=== PATIENT | male | born 1970 | race Caucasian/White ===

== ENCOUNTER 2017-02-27 13:00 | Observation (INO) | payer MEDICAID ==
[~2017-02-27] VITALS: Ht 188 cm; Wt 108.6 kg
[2017-02-27 13:57] LABS: HEMATOCRIT 43.9 % (39.2-51.8); HEMOGLOBIN 14.8 g/dL (13.7-18.0); WHITE BLOOD COUNT 9.7 x10^3/uL (3.4-10)
[2017-02-27] MEDS ORDERED: SODIUM CHLORIDE FLUSH 10ML SYR IVF ONE (14:00)
[2017-02-27] MEDS ORDERED: SODIUM CHLORIDE 0.9% 1,000ML IVBOLUS ONE (14:00)
[2017-02-27] MEDS ORDERED: ONDANSETRON 2MG/ML, 2ML IVPush ONE (14:00)
[2017-02-27] MEDS ORDERED: LORazepam 2 MG/ML, 1ML IVPush PRN (14:00)
[2017-02-27 14:09] LABS: BLOOD UREA NITROGEN 11 mg/dL (7-18)
[2017-02-27 14:12] LABS: ASPARTATE AMINO TRANSFERASE 41 U/L (15-37)
[2017-02-27 14:48] LABS: DAU SCREEN DISCLAIMER
[2017-02-27] MEDS ORDERED: ALUMINUM/MAG/SIMETHICONE 30 ML UDC PO PRN (19:00)
[2017-02-27] MEDS ORDERED: ONDANSETRON 2MG/ML, 2ML IV PRN (19:00)
[2017-02-27] MEDS ORDERED: ACETAMINOPHEN 325 MG TABLET PO PRN (19:00)
[2017-02-27] MEDS ORDERED: LORazepam 2 MG/ML, 1ML IVPush ONE (19:00)
[2017-02-27] MEDS ORDERED: DIPHENHYDRAMINE 50 MG CAPSULE PO PRN (19:00)
[2017-02-27] MEDS ORDERED: LORazepam 2 MG/ML, 1ML IM PRN (19:00)
[2017-02-27] MEDS ORDERED: LORazepam 2 MG/ML, 1ML ONE (20:01)
[2017-02-27] MEDS: BACLOFEN 10 MG TABLET PO SCH (21:00)
[2017-02-28 00:48] VITALS: BP 159/90
[2017-02-28 02:00] VITALS: BP 159/90
[2017-02-28] MEDS: MAGNESIUM SULFATE IV SCH ×3 (02:10→18:00)
[2017-02-28] MEDS: [UNRECOGNIZED DRUG - OTHER] IV SCH ×3 (02:10→18:00)
[2017-02-28] MEDS: FOLIC ACID IV SCH ×3 (02:10→18:00)
[2017-02-28] MEDS: MVI ADULT IV SCH ×3 (02:10→18:00)
[2017-02-28 05:02] LABS: HEMATOCRIT 42.3 % (39.2-51.8); HEMOGLOBIN 14.1 g/dL (13.7-18.0); WHITE BLOOD COUNT 6.2 x10^3/uL (3.4-10)
[2017-02-28 05:17] LABS: BLOOD UREA NITROGEN 11 mg/dL (7-18)
[2017-02-28 05:20] LABS: ASPARTATE AMINO TRANSFERASE 33 U/L (15-37)
[2017-02-28] MEDS: ENOXAPARIN 40 MG/0.4 ML SQ SCH ×2 (06:27→21:20)
[2017-02-28] MEDS: BACLOFEN 10 MG TABLET PO SCH ×2 (08:57→21:21)
[2017-02-28 09:00] VITALS: BP 145/98
[2017-02-28] MEDS ORDERED: LORazepam 1MG TABLET PO PRN ×3 (10:00)
[2017-02-28] MEDS ORDERED: LORazepam 2 MG/ML, 1ML IV PRN ×5 (10:00)
[2017-02-28] MEDS: LORazepam 1MG TABLET PO PRN (12:19)
[2017-02-28 14:29] VITALS: BP 148/97
[2017-02-28 18:30] VITALS: BP 141/85
[2017-02-28] MEDS: LURASIDONE 20 MG TABLET PO SCH (21:20)
[2017-02-28] MEDS: DIVALPROEX 500 MG TAB.ER.24H PO SCH (21:20)
[2017-02-28] MEDS ORDERED: LORazepam 1MG TABLET ONE (21:26)
[2017-02-28] MEDS: LORazepam 0.5MG TABLET PO PRN (21:31)
[2017-03-01 01:35] VITALS: BP 146/92
[2017-03-01] MEDS: MAGNESIUM SULFATE IV SCH (02:12)
[2017-03-01] MEDS: FOLIC ACID IV SCH (02:12)
[2017-03-01] MEDS: [UNRECOGNIZED DRUG - OTHER] IV SCH (02:12)
[2017-03-01] MEDS: MVI ADULT IV SCH (02:12)
[2017-03-01 07:59] VITALS: BP 149/100
[2017-03-01] MEDS: LORazepam 1MG TABLET PO PRN (08:14)
[2017-03-01] MEDS: KETOROLAC 30 MG/1 ML IVPush PRN ×2 (08:14→22:04)
[2017-03-01] MEDS: LURASIDONE 20 MG TABLET PO SCH (08:15)
[2017-03-01] MEDS: BACLOFEN 10 MG TABLET PO SCH ×2 (08:15→20:18)
[2017-03-01] MEDS: ALLOPURINOL 300 MG TABLET PO SCH (08:15)
[2017-03-01] MEDS ORDERED: POLYETHYLENE GLYCOL 17 GM PACKET PO PRN (09:30)
[2017-03-01 13:12] VITALS: BP 141/85
[2017-03-01] MEDS ORDERED: POTASSIUM PHOSPHATE 22 MEQ in SODIUM CHLORIDE 0.9% 500 ML IV ONE (15:30)
[2017-03-01 20:03] VITALS: BP 152/110
[2017-03-01] MEDS: ENOXAPARIN 40 MG/0.4 ML SQ SCH ×2 (20:18→20:22)
[2017-03-01] MEDS: DIVALPROEX 500 MG TAB.ER.24H PO SCH (20:19)
[2017-03-01 20:26] VITALS: BP 163/101
[2017-03-01] MEDS: LORazepam 0.5MG TABLET PO PRN (21:11)
[2017-03-01 22:07] VITALS: BP 162/91
[2017-03-02 00:47] VITALS: BP 141/88
[2017-03-02] MEDS: MAGNESIUM SULFATE IV SCH (02:20)
[2017-03-02] MEDS: [UNRECOGNIZED DRUG - OTHER] IV SCH (02:20)
[2017-03-02] MEDS: FOLIC ACID IV SCH (02:20)
[2017-03-02] MEDS: MVI ADULT IV SCH (02:20)
[2017-03-02 05:51] LABS: ASPARTATE AMINO TRANSFERASE 20 U/L (15-37); BLOOD UREA NITROGEN 13 mg/dL (7-18)
[2017-03-02 07:40] VITALS: BP 155/88
[2017-03-02] MEDS: BACLOFEN 10 MG TABLET PO SCH ×2 (08:44→21:00)
[2017-03-02] MEDS: ALLOPURINOL 300 MG TABLET PO SCH (08:44)
[2017-03-02] MEDS: LURASIDONE 20 MG TABLET PO SCH (08:44)
[2017-03-02] MEDS ORDERED: SENNA/DOCUSATE TABLET PO SCH (09:00)
[2017-03-02] MEDS: KETOROLAC 30 MG/1 ML IVPush PRN (12:03)
[2017-03-02] MEDS ORDERED: IBUPROFEN 200 MG TABLET PO PRN (16:30)
[2017-03-02 17:55] VITALS: BP 143/87
[2017-03-02 19:26] VITALS: BP 181/107
[2017-03-02] MEDS: LORazepam 1MG TABLET PO PRN (19:39)
[2017-03-02] MEDS: ENOXAPARIN 40 MG/0.4 ML SQ SCH (19:43)
[2017-03-02 20:17] VITALS: BP 138/102
[2017-03-02] MEDS: DIVALPROEX 500 MG TAB.ER.24H PO SCH (20:59)
== END 2017-03-02 22:22 ==
LOC: EDBD 13:00 → ED 14:43 → EDIP 17:44 → 4WST 23:48 → 3E 03-02 14:43
PROVIDERS: ADMIT Internal Medicine; ATTEND Internal Medicine
DX: R45.851 Suicidal ideations (principal); F10.239 Alcohol dependence with withdrawal, unspecified; F12.20 Cannabis dependence, uncomplicated; I10 Essential (primary) hypertension; R00.0 Tachycardia, unspecified; E87.1 Hypo-osmolality and hyponatremia; R17 Unspecified jaundice; F31.9 Bipolar disorder, unspecified; F22 Delusional disorders; F90.9 Attention-deficit hyperactivity disorder, unspecified type; G89.29 Other chronic pain; K59.00 Constipation, unspecified; M10.9 Gout, unspecified; Z80.0 Family history of malignant neoplasm of digestive organs; Z81.1 Family history of alcohol abuse and dependence; Z81.8 Family history of other mental and behavioral disorders; Z91.5 Personal history of self-harm
CPT/HCPCS: 36415; 80053; 80307; 82607; 82746; 83605; 83735; 84100; 85025; 93005; 96361; 96365; 96366; 96372; 96375; 96376; 99285; G0378; J1650; J1885; J2060; J3475; J7030; J7040

== ENCOUNTER 2017-06-18 20:14 | Inpatient (IN) | payer MEDICAID ==
[~2017-06-18] VITALS: Ht 188 cm; Wt 116.2 kg
[2017-06-18] MEDS ORDERED: SODIUM CHLORIDE 0.9% 1,000 ML IV ONE (20:45)
[2017-06-18] MEDS ORDERED: LORazepam 2 MG/ML, 1ML ONE ×2 (20:48→22:45)
[2017-06-18] MEDS ORDERED: LORazepam 2 MG/ML, 1ML IVPush ONE ×2 (21:00→23:00)
[2017-06-18] MEDS ORDERED: SODIUM CHLORIDE FLUSH 10ML SYR IVF ONE (21:00)
[2017-06-18] MEDS ORDERED: SODIUM CHLORIDE 0.9% 1,000ML IVBOLUS ONE (21:00)
[2017-06-18] MEDS ORDERED: THIAMINE 100MG TABLET PO ONE (21:00)
[2017-06-18] MEDS ORDERED: ONDANSETRON 2MG/ML, 2ML IVPush ONE (21:00)
[2017-06-18 21:32] LABS: HEMATOCRIT 49.3 % (39.2-51.8); HEMOGLOBIN 16.9 g/dL (13.7-18.0); WHITE BLOOD COUNT 9.2 x10^3/uL (3.4-10)
[2017-06-18 21:40] LABS: ASPARTATE AMINO TRANSFERASE 86 U/L (15-37); BLOOD UREA NITROGEN 14 mg/dL (7-18)
[2017-06-18] MEDS ORDERED: POTASSIUM CHLORIDE 20 MEQ TAB.ER.PRT PO ONE (22:30)
[2017-06-18] MEDS ORDERED: PROMETHAZINE 25 MG/ML, 1ML IM STA (22:40)
[2017-06-18] MEDS ORDERED: PROMETHAZINE 25 MG/ML, 1ML ONE (22:45)
[2017-06-18] MEDS ORDERED: POTASSIUM CHLORIDE 20 MEQ TAB.ER.PRT ONE (22:45)
[2017-06-19] MEDS ORDERED: POTASSIUM CHLORIDE 40 MEQ in SODIUM CHLORIDE 0.9% 500 ML IV ONE
[2017-06-19] MEDS ORDERED: NS + 20MEQ KCL 1,000 ML IV SCH (00:08)
[2017-06-19] MEDS ORDERED: LORazepam 2 MG/ML, 1ML ONE (00:26)
[2017-06-19] MEDS ORDERED: BISACODYL 10 MG SUPP PR PRN (00:30)
[2017-06-19] MEDS ORDERED: POLYETHYLENE GLYCOL 17 GM PACKET PO PRN (00:30)
[2017-06-19] MEDS ORDERED: ONDANSETRON 2MG/ML, 2ML IVPush PRN (00:30)
[2017-06-19] MEDS ORDERED: PROMETHAZINE 25 MG/ML, 1ML IM PRN (00:30)
[2017-06-19] MEDS ORDERED: LORazepam 2 MG/ML, 1ML IVPush PRN (00:30)
[2017-06-19] MEDS ORDERED: POTASSIUM CHLORIDE 20 MEQ, MAGNESIUM SULFATE 1 GM, THIAMINE 100 MG, MVI ADULT 10 ML in ... IV SCH (00:30)
[2017-06-19 02:00] VITALS: BP 170/89
[2017-06-19 02:09] VITALS: BP 170/89
[2017-06-19] MEDS ORDERED: HALOPERIDOL 5 MG/ML IV ONE (03:00)
[2017-06-19] MEDS ORDERED: HALOPERIDOL 5 MG/ML IM ONE (03:00)
[2017-06-19] MEDS ORDERED: LORazepam 2 MG/ML, 1ML IVPush ONE (03:00)
[2017-06-19] MEDS: HEPARIN 5,000 UNITS/ML, 1ML SQ SCH ×2 (03:06→11:04)
[2017-06-19 04:40] LABS: HEMATOCRIT 44.5 % (39.2-51.8); HEMOGLOBIN 15.4 g/dL (13.7-18.0); WHITE BLOOD COUNT 8.8 x10^3/uL (3.4-10)
[2017-06-19 05:00] LABS: BLOOD UREA NITROGEN 12 mg/dL (7-18)
[2017-06-19 05:04] LABS: ASPARTATE AMINO TRANSFERASE 82 U/L (15-37)
[2017-06-19 06:50] VITALS: BP 155/90
[2017-06-19] MEDS ORDERED: SENNA/DOCUSATE TABLET PO SCH (09:00)
[2017-06-19] MEDS ORDERED: SODIUM PHOSPHATE 20 MMOL in SODIUM CHLORIDE 0.9% 500 ML IV ONE (13:30)
[2017-06-19 14:10] VITALS: BP 155/97
== END 2017-06-19 16:15 | disposition left against medical advice (07) | DRG 894 ==
LOC: ED 23:59 → MERGE 06-19 00:08 → EDIP 06-19 00:08 → 4NOR 06-19 01:45
PROVIDERS: ADMIT Hospitalist; ATTEND Hospitalist
DX: F10.239 Alcohol dependence with withdrawal, unspecified (principal); E44.1 Mild protein-calorie malnutrition; E87.5 Hyperkalemia; D75.89 Other specified diseases of blood and blood-forming organs; F12.90 Cannabis use, unspecified, uncomplicated; F17.210 Nicotine dependence, cigarettes, uncomplicated; I10 Essential (primary) hypertension; E80.6 Other disorders of bilirubin metabolism; R00.0 Tachycardia, unspecified; R74.0 Nonspecific elevation of levels of transaminase and lactic acid dehydrogenase [LDH]; Z68.32 Body mass index [BMI] 32.0-32.9, adult
CPT/HCPCS: 36415; 80053; 80307; 83690; 83735; 84100; 85025; 85610; 93005; 96361; 96365; 96375; 96376; J1644; J2405; J2550; J3411; J3475; J3480; G0479; J1630; J2060; J7030; J7040

== ENCOUNTER 2018-04-09 22:14 | Emergency (ER) | payer MEDICAID ==
[~2018-04-09] VITALS: Ht 188 cm; Wt 126.4 kg
[2018-04-09 22:17] VITALS: BP 151/94
[2018-04-09 23:25] LABS: BASOPHILS # (AUTO) 0.05 x10^3/uL (0-0.1); BASOPHILS % (AUTO) 1 % (0-1); EOSINOPHILS # (AUTO) 0.16 x10^3/uL (0-0.4); EOSINOPHILS % (AUTO) 2 % (1-7); LYMPHOCYTES # (AUTO) 2.79 x10^3/uL (1-3.4); LYMPHOCYTES % (AUTO) 35 % (22-44); MD NO; MEAN CORPUSCULAR HGB CONC 34.9 g/dL (33.2-36.2); MEAN CORPUSCULAR VOLUME 91.6 fL (81-97); MONOCYTES # (AUTO) 0.67 x10^3/uL (0.2-0.8); MONOCYTES % (AUTO) 8 % (2-9); NEUTROPHILS # (AUTO) 4.32 x10^3/uL (1.8-6.8); NEUTROPHILS % (AUTO) 54 % (42-75); PLATELET COUNT 218 x10^3/uL (130-400); RED BLOOD COUNT 4.43 x10^6/uL (4.38-5.82); RED CELL DISTRIBUTION WIDTH 12.6 % (9.4-14.8)
[2018-04-09 23:37] LABS: ALANINE AMINOTRANSFERASE 21 U/L (12-78); ALBUMIN 3.3 g/dL (3.4-5.0); ANION GAP 7 mmol/L (5-15); CALCIUM 8.6 mg/dL (8.5-10.1); CHLORIDE 112 mmol/L (98-107); CREATININE 1.03 mg/dL (0.7-1.3); SALICYLATE LEVEL 2.6 mg/dL (2.8-20.0)
[2018-04-09 23:38] LABS: AMPHETAMINE SCREEN, URINE Negative (Negative); BARBITURATE SCREEN, URINE Negative (Negative); BENZODIAZEPINE SCREEN, URINE Negative (Negative); CANNABINOID SCREEN, URINE Negative (Negative); COCAINE SCREEN, URINE Negative (Negative); METHADONE SCREEN, URINE Negative (Negative); OPIATE SCREEN, URINE Negative (Negative)
[2018-04-09 23:39] LABS: ALKALINE PHOSPHATASE 78 U/L (45-117); BILIRUBIN,TOTAL 0.3 mg/dL (0.2-1.0); TOTAL PROTEIN 6.8 g/dL (6.4-8.2)
[2018-04-09 23:42] LABS: ACETAMINOPHEN < 2 mcg/mL (10-30)
== END 2018-04-10 02:38 | disposition home or self-care (01) ==
LOC: ED 23:27
DX: F32.0 Major depressive disorder, single episode, mild (principal); F17.210 Nicotine dependence, cigarettes, uncomplicated; M10.9 Gout, unspecified; Z91.011 Allergy to milk products; Z79.899 Other long term (current) drug therapy
CPT/HCPCS: 36415; 80053; 80307; 80329; 85025; 99284; G0480

== ENCOUNTER 2019-12-10 13:57 | Emergency (ER) | payer MEDICAID ==
[~2019-12-10] VITALS: Ht 185.4 cm; Wt 115.9 kg
[2019-12-10 14:00] VITALS: BP 135/93
--- NOTE | 2019-12-10 14:55 | NUR ---
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
--- NOTE | 2019-12-10 16:29 | NUR ---
CARE FOR DC ONLY PROVIDED. PT SITTING UP ON CHAIR, DRESSED. NO IV TO DC. REVIEWED DC INSTRUCTIONS WITH PT. UNDERSTANDING VERBALIZED. PT LEFT AMB, GAIT STEADY.
== END 2019-12-10 16:31 | disposition home or self-care (01) ==
LOC: ED 16:11
DX: S90.32XA Contusion of left foot, initial encounter (principal); S06.9X1A Unspecified intracranial injury with loss of consciousness of 30 minutes or less, initial encounter; M10.9 Gout, unspecified; Y04.8XXA Assault by other bodily force, initial encounter; Y93.89 Activity, other specified; Y92.488 Other paved roadways as the place of occurrence of the external cause; Y99.8 Other external cause status
CPT/HCPCS: 70450; 99284

== ENCOUNTER 2020-04-19 15:14 | Emergency (ER) | payer MEDICAID ==
[~2020-04-19] VITALS: Ht 188 cm; Wt 110.0 kg
[2020-04-19 15:24] VITALS: BP 147/102
[2020-04-19] MEDS ORDERED: THIAMINE 100MG TABLET PO ONE (15:30)
--- NOTE | 2020-04-19 15:37 | NUR ---
TASK RN NOTE: PT MAURA , REPORT TAKEN FROM EMS. "MY CALLED THE AMBULANCE, I DON'T KNOW WHY, SHE DOES THAT ABOUT TWICE A MONTH." PT ADMITS TO 2 SHOTS OF VODKA WITHIN THE LAST 2 HRS. PT STATES HE HAD A SEIZURE YESTERDAY, GENERALIZED PAIN SINCE THAT TIME. PT STATES THIS WAS AN ETOH WITHDRAWAL SEIZURE. PT APPEARS INTOXICATED. ALL MONITORS IN PLACE. CALL LIGHT IN REACH. PT TO HAVE LABS AND THIAMINE. REPORT GIVEN TO WILLARD BROWNING WHO IS ASSUMING CARE.
[2020-04-19 15:44] LABS: BASOPHILS # (AUTO) 0.03 x10^3/uL (0-0.1); BASOPHILS % (AUTO) 1 % (0-1); EOSINOPHILS # (AUTO) 0.06 x10^3/uL (0-0.4); EOSINOPHILS % (AUTO) 1 % (1-7); LYMPHOCYTES # (AUTO) 2.07 x10^3/uL (1-3.4); LYMPHOCYTES % (AUTO) 34 % (22-44); MD NO; MEAN CORPUSCULAR HEMOGLOBIN 33.8 pg (27.5-34.5); MEAN CORPUSCULAR HGB CONC 32.9 g/dL (33.2-36.2); MEAN PLATELET VOLUME 7.8 fL (7.4-10.4); MONOCYTES # (AUTO) 0.75 x10^3/uL (0.2-0.8); MONOCYTES % (AUTO) 12 % (2-9); NEUTROPHILS # (AUTO) 3.21 x10^3/uL (1.8-6.8); NEUTROPHILS % (AUTO) 53 % (42-75); PLATELET COUNT 202 x10^3/uL (130-400); RED BLOOD COUNT 4.16 x10^6/uL (4.38-5.82); RED CELL DISTRIBUTION WIDTH 16.4 % (9.4-14.8)
--- NOTE | 2020-04-19 15:49 | NUR ---
PT NOT IN ROOM. THIS RN WALKED AOUND UNIT, UNABLE TO FIND PT. WILL SEE IF PT RETURNS TO ROOM, WAS NO IN BATHROOM BY ROOM.
[2020-04-19 15:57] LABS: ALANINE AMINOTRANSFERASE 64 U/L (12-78); ALBUMIN 3.2 g/dL (3.4-5.0); ANION GAP 12 mmol/L (5-15); CALCIUM 8.8 mg/dL (8.5-10.1); CHLORIDE 103 mmol/L (98-107); CREATININE 1.11 mg/dL (0.7-1.3)
[2020-04-19 16:01] LABS: ALKALINE PHOSPHATASE 200 U/L (45-117); BILIRUBIN,TOTAL 0.8 mg/dL (0.2-1.0)
--- NOTE | 2020-04-19 16:15 | NUR ---
per reena who is watching pt by this pt's room, pt walked by her steadily out of room. pt did not say where he was going. erp aware pt has gone
== END 2020-04-19 16:11 | disposition left against medical advice (07) ==
LOC: ED 16:05
DX: F10.229 Alcohol dependence with intoxication, unspecified (principal); Y90.0 Blood alcohol level of less than 20 mg/100 ml
CPT/HCPCS: 36415; 80053; 80307; 85025; 99283

== ENCOUNTER 2020-04-27 21:33 | Inpatient (IN) | payer MEDICAID ==
[~2020-04-27] VITALS: Ht 188 cm; Wt 113.8 kg
--- NOTE | 2020-04-27 21:44 | NUR ---
BIBA, pt states he is trying to cut back on alcohol intake and has been experiencing N/V and tremors. Pt states he had a seizure 2 days ago and had an episode today where he "was sitting in bed putting on his shoes and fell into bed and woke up with one shoe on." Pt reports he previously was drinking a fifth a day and has cut back to "a couple shots", pt states last drink was this am. Receieved 5mg Versed and 4 mg zofran en route
[2020-04-27] MEDS ORDERED: LORazepam 2 MG/ML, 1ML ONE ×2 (22:27→23:53)
[2020-04-27] MEDS ORDERED: ONDANSETRON 2MG/ML, 2ML ONE (22:27)
[2020-04-27] MEDS ORDERED: LORazepam 2 MG/ML, 1ML IVPush ONE (22:30)
[2020-04-27] MEDS ORDERED: SODIUM CHLORIDE FLUSH 10ML SYR IVF ONE (22:30)
[2020-04-27] MEDS ORDERED: ONDANSETRON 2MG/ML, 2ML IVPush ONE (22:30)
[2020-04-27] MEDS ORDERED: MAGNESIUM SULFATE 1 GM, THIAMINE 100 MG, FOLIC ACID 1 MG, MVI ADULT 10 ML in SODIUM CHL... IV ONE (22:30)
--- NOTE | 2020-04-27 22:35 | NUR ---
banana bag requested from pharmacy
--- NOTE | 2020-04-27 22:45 | NUR ---
called pt per pt request at [phone] and provided update
[2020-04-27 22:49] LABS: MEAN CORPUSCULAR HEMOGLOBIN 33.7 pg (27.5-34.5); MEAN CORPUSCULAR HGB CONC 32.6 g/dL (33.2-36.2); MEAN PLATELET VOLUME 9.2 fL (7.4-10.4); PLATELET COUNT 109 x10^3/uL (130-400); RED BLOOD COUNT 3.76 x10^6/uL (4.38-5.82); RED CELL DISTRIBUTION WIDTH 15.7 % (9.4-14.8)
[2020-04-27 22:58] LABS: ALANINE AMINOTRANSFERASE 48 U/L (12-78); ALBUMIN 3.1 g/dL (3.4-5.0); ANION GAP 12 mmol/L (5-15); CALCIUM 8.7 mg/dL (8.5-10.1); CHLORIDE 101 mmol/L (98-107); CREATININE 0.98 mg/dL (0.7-1.3)
[2020-04-27 22:59] LABS: MD YES
[2020-04-27 23:00] LABS: ALKALINE PHOSPHATASE 171 U/L (45-117); BILIRUBIN,TOTAL 1.7 mg/dL (0.2-1.0); TOTAL PROTEIN 7.6 g/dL (6.4-8.2)
[2020-04-27 23:45] LABS: ANISOCYTOSIS 1+; BAND#(MANUAL) 0.08 x10^3/uL; BANDS%(MANUAL) 1 % (0-7); BASOS#(MANUAL) 0.08 x10^3/uL (0-0.1); BASOS% (MANUAL) 1 % (0-1); LYMPH#(MANUAL) 0.66 x10^3/uL (1-3.4); LYMPHS% (MANUAL) 8 % (22-44); MONOS#(MANUAL) 1.08 x10^3/uL (0.3-2.7); MONOS% (MANUAL) 13 % (2-9); SEG#(MANUAL) 6.39 x10^3/uL (1.8-6.8); SEGS% (MANUAL) 77 % (42-75)
[2020-04-27 23:47] LABS: <PLATELET ESTIMATE> DECREASED; LARGE PLATELETS 1+
[2020-04-27] MEDS ORDERED: POTASSIUM CHLORIDE 20 MEQ TAB.ER.PRT ONE (23:52)
[2020-04-28] MEDS ORDERED: SODIUM CHLORIDE 0.9% 1,000ML IVBOLUS ONE
[2020-04-28] MEDS ORDERED: ONDANSETRON 2MG/ML, 2ML ONE (00:49)
[2020-04-28] MEDS ORDERED: ONDANSETRON 2MG/ML, 2ML IVPush ONE (01:00)
[2020-04-28] MEDS ORDERED: LORazepam 2 MG/ML, 1ML IVPush ONE ×3 (01:00→01:30)
[2020-04-28] MEDS ORDERED: LORazepam 2 MG/ML, 1ML ONE (01:04)
--- NOTE | 2020-04-28 02:26 | NUR ---
covering for break, pt awake, slightly tremulous but states feels better since ativan. eating and drinking, ivf banana bag infusing. vss.
--- NOTE | 2020-04-28 02:39 | NUR ---
hospitalist at bedside.
--- NOTE | 2020-04-28 02:52 | NUR ---
report called to Charu LAMAR to assume care upon transfer to [facility]
[2020-04-28] MEDS ORDERED: POTASSIUM CHLORIDE 20 MEQ TAB.ER.PRT PO ONE ×2 (03:00)
[2020-04-28] MEDS ORDERED: LORazepam 2 MG/ML, 1ML IV PRN ×4 (03:00)
[2020-04-28] MEDS ORDERED: FOLIC ACID 1 MG TABLET PO ONE (03:00)
[2020-04-28] MEDS ORDERED: ENALAPRILAT 1.25 MG/ML, 2ML IVPush PRN (03:00)
[2020-04-28] MEDS ORDERED: ONDANSETRON 2MG/ML, 2ML IVPush PRN (03:00)
[2020-04-28] MEDS ORDERED: GABAPENTIN 300 MG CAPSULE PO PRN (03:00)
[2020-04-28 03:36] VITALS: BP 127/80
[2020-04-28 04:32] LABS: FREE T4 (FREE THYROXINE) 1.03 ng/dL (0.76-1.46)
[2020-04-28] MEDS: DIAZEPAM 10 MG TABLET PO SCH ×2 (04:41→09:00)
[2020-04-28] MEDS: LORazepam 2 MG/ML, 1ML IV PRN ×2 (07:55→10:06)
[2020-04-28 08:44] VITALS: BP 150/93
[2020-04-28] MEDS ORDERED: MULTIVITAMINS/MINERALS TABLET PO SCH (09:00)
[2020-04-28] MEDS ORDERED: DIAZEPAM 5 MG TABLET ONE (09:42)
[2020-04-28] MEDS ORDERED: CYANOCOBALAMIN 1,000 MCG/ML, 1ML IM SCH (10:00)
[2020-04-28] MEDS ORDERED: MULTIVITS,STRESS FORMULA 1 TABLET PO SCH (10:00)
[2020-04-28] MEDS ORDERED: ZINC SULFATE 220 MG CAPSULE PO SCH (10:00)
[2020-04-28] MEDS ORDERED: MAGNESIUM SULFATE PMX 2GM/50ML 50 ML IV ONE (10:00)
[2020-04-28] MEDS ORDERED: GABAPENTIN 300 MG CAPSULE PO SCH (10:00)
[2020-04-28] MEDS ORDERED: CHOLECALCIFEROL 5,000u TAB PO SCH (10:00)
[2020-04-28] MEDS ORDERED: ASCORBIC ACID 500 MG TABLET PO SCH (17:00)
[2020-04-29] MEDS ORDERED: DIAZEPAM 5 MG TABLET PO SCH (03:00)
[2020-04-29] MEDS ORDERED: THIAMINE 100 MG in DEXTROSE 5% 50 ML IVPB SCH (09:00)
== END 2020-04-28 11:34 | disposition left against medical advice (07) | DRG 894 ==
LOC: ED 22:04 → EDIP 04-28 01:35 → 5SO 04-28 03:03
PROVIDERS: ADMIT Family Medicine; ATTEND Family Medicine
DX: F10.221 Alcohol dependence with intoxication delirium (principal); R00.0 Tachycardia, unspecified; F10.239 Alcohol dependence with withdrawal, unspecified; F19.10 Other psychoactive substance abuse, uncomplicated; F41.9 Anxiety disorder, unspecified; E87.6 Hypokalemia; M10.9 Gout, unspecified; M19.90 Unspecified osteoarthritis, unspecified site; D69.6 Thrombocytopenia, unspecified; D53.9 Nutritional anemia, unspecified; Z82.3 Family history of stroke; Z82.49 Family history of ischemic heart disease and other diseases of the circulatory system
CPT/HCPCS: 36415; 70450; 76700; 80053; 80074; 80307; 82607; 83735; 84439; 84443; 84481; 85025; 93005; G0378; J2405; J3411; J3475; J2060; J3420; J7030

== ENCOUNTER 2020-04-28 12:09 | Emergency (ER) | payer MEDICAID ==
[~2020-04-28] VITALS: Ht 188 cm; Wt 109.1 kg
--- NOTE | 2020-04-28 12:25 | NUR ---
LEFT AMA FROM CARD TELE THIS AM. LAST DRINK UNKNOWN. PT AOX3. THINKS THE PRESIDENT IS LALA VARGAS. PT WITHDRAWING FROM ETOH. LEFT AMA AFTER HAVING A SZ. PT DIAPHORETIC IN ROOM AND SHAKING. PT NOW STATES "I JUST WANT YOU TO MAKE ME FEEL BETTER SO I CAN GO HOME". PT EDUCATED ON ED PROCESS. PT VERBALIZES UNDERSTANDING. PT HAS DT'S. PIV INITIATED. EKG COMPLETED. MONITORS APPLIED. SZ PADS IN PLACE.
[2020-04-28] MEDS ORDERED: MAGNESIUM SULFATE PMX 2GM/50ML 50 ML ONE (12:53)
[2020-04-28] MEDS ORDERED: LORazepam 2 MG/ML, 1ML ONE (12:53)
[2020-04-28] MEDS ORDERED: SODIUM CHLORIDE 0.9% 1,000 ML IV ONE (13:00)
[2020-04-28] MEDS ORDERED: THIAMINE 100 MG in SODIUM CHLORIDE 0.9% 50 ML IVPB ONE (13:00)
[2020-04-28] MEDS ORDERED: SODIUM CHLORIDE FLUSH 10ML SYR IVF ONE (13:00)
[2020-04-28] MEDS ORDERED: LORazepam 2 MG/ML, 1ML IV ONE (13:00)
[2020-04-28] MEDS ORDERED: MAGNESIUM SULFATE PMX 2GM/50ML 50 ML IV ONE (13:00)
[2020-04-28 13:13] LABS: BASOPHILS % (AUTO) 1 % (0-1); EOSINOPHILS % (AUTO) 0 % (1-7); LYMPHOCYTES % (AUTO) 20 % (22-44); MEAN CORPUSCULAR HEMOGLOBIN 33.9 pg (27.5-34.5); MEAN CORPUSCULAR HGB CONC 32.7 g/dL (33.2-36.2); MEAN PLATELET VOLUME 8.8 fL (7.4-10.4); MONOCYTES % (AUTO) 12 % (2-9); NEUTROPHILS % (AUTO) 67 % (42-75); PLATELET COUNT 114 x10^3/uL (130-400); RED BLOOD COUNT 3.58 x10^6/uL (4.38-5.82); RED CELL DISTRIBUTION WIDTH 15.9 % (9.4-14.8)
[2020-04-28 13:14] LABS: MD NO
[2020-04-28 13:21] LABS: ALANINE AMINOTRANSFERASE 41 U/L (12-78); ALBUMIN 2.9 g/dL (3.4-5.0); ANION GAP 12 mmol/L (5-15); CALCIUM 8.7 mg/dL (8.5-10.1); CHLORIDE 105 mmol/L (98-107); CREATININE 0.86 mg/dL (0.7-1.3)
[2020-04-28 13:23] LABS: ALKALINE PHOSPHATASE 160 U/L (45-117); BILIRUBIN,TOTAL 1.8 mg/dL (0.2-1.0); TOTAL PROTEIN 7.2 g/dL (6.4-8.2)
--- NOTE | 2020-04-28 14:18 | NUR ---
PT CONTINUES TO STATE THAT HE WANTS TO LEAVE. AOX3. BELIEVES THE PRESIDENT IS LALA VARGAS. ABLE TO ANSWER ALL OTHER QUESTIONS APPROPRIATELY. PT CALLED AND STATES PT SHOULD NOT LEAVE HOSPITAL. DISCUSSED CONVERSATION W/ PT. PT CONTINUES TO STATE HE IS GOING TO LEAVE. ERP DR. JOHN MADE AWARE THAT PT WANTS TO LEAVE AMA. PER ERP AMBULATE PT. PT AMBULATORY W/ STEADY GAIT. ERP AWARE. Addendum: 04/29/20 at 0847 by MYAH PT EDUCATED ON IMPORTANCE OF STAYING IN HOSPITAL AND NEED TO BE MONITORED FOR SYMPTOMS. PT REFUSING EDUCATION.
--- NOTE | 2020-04-28 14:26 | NUR ---
LONG DISCUSSION W/ ERP DR. JOHN IN REGARDS TO PT'S AO STATUS. ERP MADE AWARE THAT PT IS ABLE TO TELL YEAR BUT BELIEVES THE PRESIDENT IS LALA VARGAS. PT IS ABLE TO ANSWER ALL OTHER AO QUESTIONS W/O DIFFICULTY. ALSO SPOKE W/ ERP IN REGARDS TO PT'S CALLING AND HER THOUGHTS ON PT BEING HOSPITALIZED. PER ERP PT IS ALERT AND ORIENTED AND CAN BE SENT HOME AMA. SPOKE W/ BOBBI, ED TUNNELLER IN REGARDS TO PT AO STATUS AND ERP DR. JOHN BEING OKAY W/ PT DC HOME AND TO SEND PT HOME IN TAXI AND NOTIFY OF PT PENDING ARRIVAL.
[2020-04-28 14:32] VITALS: BP 146/92
--- NOTE | 2020-04-28 14:36 | NUR ---
SPOKE W/ [facility] WHO WILL SEND X[employer]1 TANK DRIVER TO PICK PT UP. TO BE NOTIFIED.
--- NOTE | 2020-04-28 14:39 | NUR ---
SPOKE W/ PT'S WHO STATES "I CAN'T TAKE CARE OF HIM. HE'S ON HIS OWN. I'M STAYING WITH MY MOTHER WHO CAN'T TAKE CARE OF HIM".
--- NOTE | 2020-04-28 14:43 | NUR ---
SPOKE W/ BOBBI, ED DIRECTOR ADVANCED IN REGARDS TO PT GOING HOME AND STATEMENT. PER BOBBI DOES NOT HAVE TO ACCEPT CARE AND TO SEND PT HOME IN TAXI CAB. ERP DR. JOHN MADE AWARE OF CONVERSATION W/ AND ERP STATES THAT PT CAN GO HOME.
--- NOTE | 2020-04-28 15:00 | NUR ---
RASHMI WALKED PT TO [facility] AND MADE SURE HE WAS SAFELY IN A TAXI WITH THE VOUCHER IN HAND AFTER TALKING TO THE BEATER OUT LEVELING MACHINE.
== END 2020-04-28 14:53 | disposition left against medical advice (07) ==
LOC: ED 13:41
DX: F10.239 Alcohol dependence with withdrawal, unspecified (principal); M54.2 Cervicalgia; R51.9 Headache, unspecified; R56.9 Unspecified convulsions; R00.0 Tachycardia, unspecified; I25.2 Old myocardial infarction; Z91.011 Allergy to milk products; Y90.9 Presence of alcohol in blood, level not specified
CPT/HCPCS: 36415; 70450; 72125; 80053; 83735; 85025; 93005; 96361; 96365; 96375; 99285; J2060; J3475; J7030

== ENCOUNTER 2020-04-29 22:19 | Emergency (ER) | payer MEDICAID ==
[~2020-04-29] VITALS: Ht 188 cm; Wt 108.8 kg
--- NOTE | 2020-04-29 22:28 | NUR ---
EKG IN TRIAGE
[2020-04-29] MEDS ORDERED: LORazepam 1MG TABLET PO ONE (23:00)
[2020-04-29] MEDS ORDERED: LORazepam 1MG TABLET ONE (23:09)
--- NOTE | 2020-04-29 23:15 | NUR ---
BIBA. A&o x4, visibly anxious, cooperative. Answering questions appropriately. Pt states he left [facility] yesterday after being admitted for ETOH withdrawal d/t family issue. Per pt, last drink was early this AM. Tremulous and anxious upon arrival. Pt states strong desire for sobriety, presented to ED d/t fear of seizures r/t withdrawal. Vomiting small amount of bile. Denies abd pain. Denies chest pain. Denies fever/chills. Seizure pads applied to stretcher. Sinus tach to 110s noted on monitor. MD at bedside upon arrival. Ambulates independently, slow/shuffling noted.
[2020-04-29 23:59] VITALS: BP 141/81
--- NOTE | 2020-04-30 00:05 | NUR ---
Provided pt with cab voucher and snack. States he feels comfortable going home. Successful ambulation trial. Provided pt with resources for ETOH abuse support. Verbalizes understanding for f/u care and understanding of returning to ED with worsening sx.
== END 2020-04-30 00:01 | disposition home or self-care (01) ==
LOC: ED 23:49
DX: F10.239 Alcohol dependence with withdrawal, unspecified (principal); R45.1 Restlessness and agitation; R00.0 Tachycardia, unspecified; Y90.0 Blood alcohol level of less than 20 mg/100 ml
CPT/HCPCS: 93005; 99283

== ENCOUNTER 2020-04-30 19:39 | Emergency (ER) | payer MEDICAID ==
[~2020-04-30] VITALS: Ht 188 cm; Wt 109.9 kg
--- NOTE | 2020-04-30 19:47 | NUR ---
Pt arrived ambulatory with steady gait with [facility], to lobby with [facility] to await room availability
[2020-04-30] MEDS ORDERED: SODIUM CHLORIDE 0.9% 1,000ML IVBOLUS ONE (20:30)
[2020-04-30] MEDS ORDERED: LORazepam 2 MG/ML, 1ML IVPush PRN (20:30)
[2020-04-30] MEDS ORDERED: THIAMINE 100MG TABLET PO ONE (20:30)
--- NOTE | 2020-04-30 20:39 | NUR ---
THIS IS A 49Y M THAT COMES [place] THE [place] FOR [place]H WITHDRAWL, PT STS LAST DRINK WAS THREE DAYS AGO. PT WAS SEEN HERE A FEW DAYS AGO FOR SAME. PT APPEARS TO HAVE SLIGHT TREMORS, BUT ABLE TO SPEAK IN FULL SENTENCES NADN. PT REQUESTING TURKEY SANDWICH AND JUICE AT THIS TIME. PT STS HE CAN TOLERATE FOODS. PIV STARTED LABS DRAWN FLUIDS INFUSING WITHOUT DIFFICULTY. PT CONECTED TO ALL MONITORING VSS
[2020-04-30 20:47] LABS: ALANINE AMINOTRANSFERASE 79 U/L (12-78); ALBUMIN 3.1 g/dL (3.4-5.0); ANION GAP 13 mmol/L (5-15); CALCIUM 8.4 mg/dL (8.5-10.1); CHLORIDE 101 mmol/L (98-107)
[2020-04-30 20:49] LABS: ALKALINE PHOSPHATASE 133 U/L (45-117); BILIRUBIN,TOTAL 1.4 mg/dL (0.2-1.0); CREATININE 0.75 mg/dL (0.7-1.3); TOTAL PROTEIN 7.1 g/dL (6.4-8.2)
[2020-04-30 20:56] LABS: BASOPHILS % (AUTO) 0 % (0-1); EOSINOPHILS % (AUTO) 0 % (1-7); LYMPHOCYTES % (AUTO) 20 % (22-44); MEAN CORPUSCULAR HEMOGLOBIN 34.2 pg (27.5-34.5); MEAN CORPUSCULAR HGB CONC 32.7 g/dL (33.2-36.2); MEAN PLATELET VOLUME 8.5 fL (7.4-10.4); MONOCYTES % (AUTO) 16 % (2-9); NEUTROPHILS % (AUTO) 64 % (42-75); PLATELET COUNT 142 x10^3/uL (130-400); RED BLOOD COUNT 3.35 x10^6/uL (4.38-5.82); RED CELL DISTRIBUTION WIDTH 15.2 % (9.4-14.8)
[2020-04-30 21:02] LABS: MD NO
[2020-04-30] MEDS ORDERED: LORazepam 2 MG/ML, 1ML ONE (21:15)
[2020-04-30] MEDS ORDERED: POTASSIUM CHLORIDE 20 MEQ TAB.ER.PRT ONE (21:28)
[2020-04-30] MEDS ORDERED: THIAMINE 100MG TABLET ONE (21:28)
[2020-04-30] MEDS ORDERED: POTASSIUM CHLORIDE 20 MEQ TAB.ER.PRT PO ONE (21:30)
[2020-04-30 21:31] VITALS: BP 124/80
--- NOTE | 2020-04-30 21:36 | NUR ---
PT RESTING ON [place], SCROLLING THROUGH SOCIAL MEDIA AT THIS TIME. PT TOLERATING ALL PO FLUIDS AND FOOD WITHOUT DIFFICULTY
--- NOTE | 2020-04-30 22:10 | NUR ---
Patient/Caregiver given discharge instructions and they have confirmed that they understand the instructions. Patient ambulatory with steady gait.
== END 2020-04-30 22:12 | disposition home or self-care (01) ==
LOC: ED 21:13
DX: F10.139 Alcohol abuse with withdrawal, unspecified (principal); E87.6 Hypokalemia; R45.4 Irritability and anger; R45.1 Restlessness and agitation; R44.3 Hallucinations, unspecified; F41.9 Anxiety disorder, unspecified; M10.9 Gout, unspecified; Y90.0 Blood alcohol level of less than 20 mg/100 ml
CPT/HCPCS: 36415; 80053; 80307; 83690; 85025; 96361; 96374; 99283; J2060; J7030

== ENCOUNTER 2020-05-31 09:11 | Emergency (ER) | payer MEDICAID ==
[~2020-05-31] VITALS: Ht 188 cm; Wt 105.0 kg
[2020-05-31 10:26] LABS: EOSINOPHILS % (AUTO) 0 % (1-7); MEAN PLATELET VOLUME 9.1 fL (7.4-10.4); PLATELET COUNT 102 x10^3/uL (130-400)
[2020-05-31 10:28] LABS: BASOPHILS % (AUTO) 1 % (0-1); LYMPHOCYTES % (AUTO) 20 % (22-44); MEAN CORPUSCULAR HEMOGLOBIN 32.6 pg (27.5-34.5); MEAN CORPUSCULAR HGB CONC 32.7 g/dL (33.2-36.2); MONOCYTES % (AUTO) 8 % (2-9); NEUTROPHILS % (AUTO) 71 % (42-75); RED BLOOD COUNT 4.08 x10^6/uL (4.38-5.82); RED CELL DISTRIBUTION WIDTH 17.9 % (9.4-14.8)
[2020-05-31] MEDS ORDERED: ACETAMINOPHEN 500 MG TABLET ONE (10:29)
[2020-05-31] MEDS ORDERED: ACETAMINOPHEN 500 MG TABLET PO ONE (10:30)
[2020-05-31 10:31] LABS: ALBUMIN 3.4 g/dL (3.4-5.0); ANION GAP 15 mmol/L (5-15); CALCIUM 8.6 mg/dL (8.5-10.1); CHLORIDE 105 mmol/L (98-107); CREATININE 0.79 mg/dL (0.7-1.3)
[2020-05-31] MEDS ORDERED: LORazepam 1MG TABLET ONE (10:47)
[2020-05-31] MEDS ORDERED: PROMETHAZINE 25 MG/ML, 1ML ONE (10:53)
[2020-05-31] MEDS ORDERED: LORazepam 1MG TABLET PO ONE (11:00)
[2020-05-31] MEDS ORDERED: PROMETHAZINE 25 MG/ML, 1ML IM ONE (11:00)
[2020-05-31 11:04] LABS: MD SCAN
--- NOTE | 2020-05-31 11:13 | NUR ---
MD NOTIFIED OF PT HAVING TREMORS, VOMITTING, DIAPHORESIS. MEDICATIONS ORDERED AND ADMINISTERED PER MD.
[2020-05-31 11:46] VITALS: BP 128/78
--- NOTE | 2020-05-31 11:55 | NUR ---
PT VSS. ABLE TO STAND AND WALK SHORT DISTANCES AT DISCHARGE. GIVEN A WHEELCHAIR TO WAIT IN FOR TAXI. GIVEN TAXI VOUCHURE FOR SAFE DISCHARGE. PT STATES "I FEEL ALOT BETTER" PT PROVIDED A LIST OF ALCOHOL DETOX LOCATIONS. PT STATES "I HAVE BEEN THERE BEFORE, I KNOW WHAT THEY ARE GOING TO SAY. I AM JUST GOING TO GO HOME". RN INFORMED PT THE IMPORTANCE OF GOING TO THESE CLINICS. INFORMED TO COME BACK TO ER IF DETOX WORSENS. PT VERBALIZED UNDERSTANDING.
== END 2020-05-31 12:03 | disposition home or self-care (01) ==
LOC: ED 11:15
DX: G92 Toxic encephalopathy (principal); F10.129 Alcohol abuse with intoxication, unspecified; M25.551 Pain in right hip; Y90.0 Blood alcohol level of less than 20 mg/100 ml
CPT/HCPCS: 36415; 73502; 80048; 80307; 82040; 85025; 96372; 99284; J2550

== ENCOUNTER 2020-07-13 20:03 | Emergency (ER) | payer MEDICAID ==
[~2020-07-13] VITALS: Ht 188 cm; Wt 113.5 kg
--- NOTE | 2020-07-13 20:10 | NUR ---
PER PATIENT HE STATES HE'S BEEN DRINKING A 5TH OF ALCOHOL FOR "YEARS" AND HAS HAD MULTIPLE SEIZRUES FROM ETOH WITHDRAW PREVIOUSLY. "I COULDN'T GET TO THE [facility] FOR 1.5 DAYS SO THAT'S WHY I HAVEN'T DRANK. I HAVE ALL THE TOOLS, BUT I DON'T NEED DETOX." PT STATES HE MOSTLY REMEMBERS HIS FALL. DENIES HEAD TRAUMA.
[2020-07-13] MEDS ORDERED: THIAMINE 100MG TABLET PO ONE (20:30)
[2020-07-13] MEDS ORDERED: SODIUM CHLORIDE 0.9% 1,000ML IVBOLUS ONE (20:30)
[2020-07-13] MEDS ORDERED: LORazepam 1MG TABLET PO ONE (20:30)
[2020-07-13] MEDS ORDERED: LORazepam 2 MG/ML, 1ML ONE (20:43)
[2020-07-13 20:56] LABS: BASOPHILS % (AUTO) 1 % (0-1); EOSINOPHILS % (AUTO) 0 % (1-7); LYMPHOCYTES % (AUTO) 7 % (22-44); MEAN CORPUSCULAR HEMOGLOBIN 27.2 pg (27.5-34.5); MEAN CORPUSCULAR HGB CONC 31.5 g/dL (33.2-36.2); MONOCYTES % (AUTO) 8 % (2-9); NEUTROPHILS % (AUTO) 84 % (42-75); PLATELET COUNT 144 x10^3/uL (130-400); RED BLOOD COUNT 3.87 x10^6/uL (4.38-5.82)
[2020-07-13] MEDS ORDERED: LORazepam 2 MG/ML, 1ML IVPush ONE (21:00)
[2020-07-13 21:03] LABS: ALBUMIN 3.6 g/dL (3.4-5.0); ANION GAP 10 mmol/L (5-15); CALCIUM 9.1 mg/dL (8.5-10.1); CHLORIDE 106 mmol/L (98-107); CREATININE 1.16 mg/dL (0.7-1.3)
[2020-07-13] MEDS ORDERED: THIAMINE 100MG TABLET ONE (21:12)
[2020-07-13 21:28] LABS: MD MORPH REVIEW ONLY
[2020-07-13 21:30] LABS: <PLATELET ESTIMATE> ADEQUATE; <PLT MORPHOLOGY> NORMAL PLT MORPH; ANISOCYTOSIS 1+; MICROCYTOSIS 1+; OVALOCYTES 1+; POLYCHROMASIA 1+
[2020-07-13 21:56] VITALS: BP 131/75
== END 2020-07-13 22:16 | disposition home or self-care (01) ==
LOC: ED 21:58
DX: S39.012A Strain of muscle, fascia and tendon of lower back, initial encounter (principal); S93.491A Sprain of other ligament of right ankle, initial encounter; S09.90XA Unspecified injury of head, initial encounter; F10.132 Alcohol abuse with withdrawal with perceptual disturbance; M10.9 Gout, unspecified; E87.6 Hypokalemia; R11.2 Nausea with vomiting, unspecified; W01.0XXA Fall on same level from slipping, tripping and stumbling without subsequent striking against object, initial encounter; Y93.89 Activity, other specified; Y92.89 Other specified places as the place of occurrence of the external cause; Y99.8 Other external cause status; Y90.0 Blood alcohol level of less than 20 mg/100 ml
CPT/HCPCS: 36415; 70450; 72110; 73610; 73630; 80048; 82040; 85025; 93005; 96361; 96374; 99285; J2060; J7030

== ENCOUNTER 2020-08-04 14:01 | Emergency (ER) | payer MEDICAID ==
[~2020-08-04] VITALS: Ht 188 cm; Wt 111.1 kg
--- NOTE | 2020-08-04 14:05 | NUR ---
PT BIB [facility] FROM HOME FOR ETOH W/D. PER PT & EMS, PT LAST DRANK 3 DAYS AGO. PT TYPICALLY DRINKS ABOUT 1 PINT TO 1/5TH A DAY. PT C/O N/V WITH HEMATEMESIS TODAY, AND A SEIZURE A COUPLE DAYS AGO WITH PAIN/INJURY R ANKLE FROM FALL. PT HAS ATTEMPTED ETOH CESSATION MULTIPLE TIMES IN THE PAST. HX OF ETOH W/D SYMPTOMS. ARRIVES TO ED A&OX4, VERY SHAKY, NAUSEOUS. UNALBE TO AMBULATE D/T SHAKINESS & R FOOT PAIN. PT WAS MEDICATED WITH 2MG VERSED AND 4MG ZOFRAN EN ROUTE. ERP AT BS IMMEDIATELY.
[2020-08-04] MEDS ORDERED: LORazepam 2 MG/ML, 1ML ONE ×2 (14:06→15:33)
[2020-08-04] MEDS: LORazepam 2 MG/ML, 1ML IVPush PRN ×3 (14:12→15:36)
--- NOTE | 2020-08-04 14:26 | NUR ---
ERP WAS IN FOR RECHECK.
[2020-08-04] MEDS ORDERED: THIAMINE 100 MG/ML, 2ML IM ONE (14:30)
[2020-08-04] MEDS ORDERED: CHLORDIAZEPOXIDE 25 MG CAPSULE PO PRN (14:30)
[2020-08-04] MEDS ORDERED: THIAMINE 100MG TABLET PO ONE (14:30)
[2020-08-04] MEDS ORDERED: SODIUM CHLORIDE 0.9% 1,000ML IVBOLUS ONE (14:30)
[2020-08-04] MEDS ORDERED: SODIUM CHLORIDE FLUSH 10ML SYR IVF ONE (14:30)
[2020-08-04] MEDS ORDERED: CHLORDIAZEPOXIDE 25 MG CAPSULE ONE (14:33)
[2020-08-04] MEDS ORDERED: THIAMINE 100MG TABLET ONE (14:33)
[2020-08-04 14:38] LABS: ALANINE AMINOTRANSFERASE 46 U/L (12-78); ALBUMIN 3.4 g/dL (3.4-5.0); ANION GAP 12 mmol/L (5-15); CALCIUM 9.8 mg/dL (8.5-10.1); CHLORIDE 98 mmol/L (98-107); CREATININE 1.14 mg/dL (0.7-1.3)
[2020-08-04 14:40] LABS: ALKALINE PHOSPHATASE 143 U/L (45-117); BILIRUBIN,TOTAL 1.3 mg/dL (0.2-1.0); TOTAL PROTEIN 7.8 g/dL (6.4-8.2)
[2020-08-04] MEDS ORDERED: ONDANSETRON 2MG/ML, 2ML ONE (14:40)
[2020-08-04 14:45] LABS: BASOPHILS % (AUTO) 0 % (0-1); EOSINOPHILS % (AUTO) 0 % (1-7); LYMPHOCYTES % (AUTO) 11 % (22-44); MEAN CORPUSCULAR HEMOGLOBIN 25.9 pg (27.5-34.5); MEAN CORPUSCULAR HGB CONC 31.2 g/dL (33.2-36.2); MEAN PLATELET VOLUME 8.3 fL (7.4-10.4); MONOCYTES % (AUTO) 10 % (2-9); NEUTROPHILS % (AUTO) 79 % (42-75); PLATELET COUNT 116 x10^3/uL (130-400); RED BLOOD COUNT 3.94 x10^6/uL (4.38-5.82); RED CELL DISTRIBUTION WIDTH 25.8 % (9.4-14.8)
--- NOTE | 2020-08-04 14:45 | NUR ---
PT SPITTING UP SMALL AMOUNTS OF BLOOD (LESS THAN 10ML). ERP NOTIFIED, WAS IN TO SEE PT AGAIN. WILL MEDICATE PT WITH ANOTHER 4MG OF ZOFRAN. INSTRUCTED PT TO RETURN TO ED IF HE IS VOMITING LARGER AMOUNTS OF BLOOD. Addendum: 08/04/20 at 1515 by HBENSON PT STILL SHAKY AFTER FIRST DOSE ATIVAN. WILL GIVE SECOND DOSE OF 1MG ATIVAN PER ERP.
[2020-08-04] MEDS ORDERED: ONDANSETRON 2MG/ML, 2ML IVPush ONE (15:00)
[2020-08-04 15:01] LABS: MD MORPH REVIEW ONLY
[2020-08-04 15:32] LABS: ANISOCYTOSIS 1+
[2020-08-04] MEDS ORDERED: PROMETHAZINE 25 MG/ML, 1ML ONE (15:33)
[2020-08-04 15:34] LABS: MICROCYTOSIS 1+; OVALOCYTES 1+; POLYCHROMASIA 1+
[2020-08-04 15:35] LABS: <PLATELET ESTIMATE> DECREASED; STOMATOCYTES 1+
[2020-08-04 15:36] LABS: <PLT MORPHOLOGY> NORMAL PLT MORPH
[2020-08-04] MEDS ORDERED: PROMETHAZINE 25 MG/ML, 1ML IM ONE (16:00)
--- NOTE | 2020-08-04 16:03 | NUR ---
ERP AT FOR RECHECK.
--- NOTE | 2020-08-04 16:56 | NUR ---
TASK RN: POST MED LANGLEY CIWA TO 4 REVIWED MEDICATION PLAN, SAFETY CONCERN, SXS TO WATCH FOR
[2020-08-04 17:04] VITALS: BP 112/90
== END 2020-08-04 17:07 | disposition home or self-care (01) ==
LOC: ED 16:42
DX: F10.239 Alcohol dependence with withdrawal, unspecified (principal); R25.1 Tremor, unspecified; R11.2 Nausea with vomiting, unspecified; R00.0 Tachycardia, unspecified; M10.9 Gout, unspecified; Z87.891 Personal history of nicotine dependence; Y90.0 Blood alcohol level of less than 20 mg/100 ml
CPT/HCPCS: 36415; 80053; 80320; 83735; 85025; 93005; 96361; 96372; 96374; 96375; 96376; 99285; J2060; J2405; J2550; J7030; G0480

== ENCOUNTER 2020-10-01 10:05 | Inpatient (IN) | payer MEDICAID ==
[~2020-10-01] VITALS: Ht 188 cm; Wt 116.8 kg
--- NOTE | 2020-10-01 10:23 | NUR ---
pt on seziure precautions. complains of left shoulder pain after he fell two days ago.
[2020-10-01] MEDS ORDERED: LORazepam 2 MG/ML, 1ML ONE ×2 (10:28→12:47)
[2020-10-01] MEDS ORDERED: SODIUM CHLORIDE FLUSH 10ML SYR IVF ONE (10:30)
[2020-10-01] MEDS ORDERED: LORazepam 2 MG/ML, 1ML IV ONE (10:30)
[2020-10-01] MEDS ORDERED: SODIUM CHLORIDE 0.9% 1,000 ML IV ONE (10:30)
[2020-10-01] MEDS ORDERED: LORazepam 2 MG/ML, 1ML IVPush PRN (10:30)
--- NOTE | 2020-10-01 10:42 | NUR ---
pt medicated tremors, asked this RN to call his Harper at [phone].
--- NOTE | 2020-10-01 10:51 | NUR ---
Per patients request this RN called his to tellhim that he is here. She became upset and asked why he is not in nursing home. She asked me to make sure he cannot come to her or her mothers house until saturday. I informed her to discuss this with the police, that I work at a medical facility.
[2020-10-01 10:57] LABS: BASOPHILS % (AUTO) 1 % (0-1); EOSINOPHILS % (AUTO) 0 % (1-7); LYMPHOCYTES % (AUTO) 12 % (22-44); MEAN CORPUSCULAR HEMOGLOBIN 25.4 pg (27.5-34.5); MEAN PLATELET VOLUME 7.6 fL (7.4-10.4); MONOCYTES % (AUTO) 7 % (2-9); NEUTROPHILS % (AUTO) 80 % (42-75); PLATELET COUNT 170 x10^3/uL (130-400); RED CELL DISTRIBUTION WIDTH 24.6 % (9.4-14.8)
[2020-10-01] MEDS ORDERED: MAGNESIUM SULFATE 1 GM, THIAMINE 100 MG, FOLIC ACID 1 MG in SODIUM CHLORIDE 0.9% 1,000 ML IV ONE (11:00)
[2020-10-01 11:10] LABS: ALBUMIN 3.7 g/dL (3.4-5.0); ANION GAP 11 mmol/L (5-15); CHLORIDE 103 mmol/L (98-107)
[2020-10-01 11:13] LABS: ALANINE AMINOTRANSFERASE 44 U/L (12-78); ALKALINE PHOSPHATASE 112 U/L (45-117); BILIRUBIN,TOTAL 0.9 mg/dL (0.2-1.0); CALCIUM 8.7 mg/dL (8.5-10.1); CREATININE 0.95 mg/dL (0.7-1.3); TOTAL PROTEIN 8.4 g/dL (6.4-8.2)
[2020-10-01 11:18] LABS: ACETONE, SERUM Negative (Negative)
[2020-10-01 11:26] LABS: MD MORPH REVIEW ONLY
[2020-10-01 11:27] LABS: ANISOCYTOSIS 1+
--- NOTE | 2020-10-01 11:28 | NUR ---
all labs back,. chart up for erp.
[2020-10-01 11:29] LABS: <PLATELET ESTIMATE> ADEQUATE; <PLT MORPHOLOGY> NORMAL PLT MORPH; HYPOCHROMIA 1+; OVALOCYTES 1+; POLYCHROMASIA 1+
[2020-10-01] MEDS ORDERED: POTASSIUM CHLORIDE 40 MEQ in D5%-LACTATED RINGERS 1,000 ML IV SCH (12:00)
[2020-10-01] MEDS ORDERED: MAGNESIUM SULFATE PMX 2GM/50ML 50 ML IV ONE (12:00)
--- NOTE | 2020-10-01 12:06 | NUR ---
PT RESTING EYES CLOSED, MILD TREMORS. ON OXYGEN. AWARE OF ADMISSION PLANS. ON DIRECTOR OF GRANTS.
--- NOTE | 2020-10-01 12:29 | NUR ---
attempted report to floor.
--- NOTE | 2020-10-01 12:49 | NUR ---
pt tremors exacerbated, moderate and awake. medicated as ordered.
--- NOTE | 2020-10-01 12:59 | NUR ---
Report to ALISHA LAMAR.
[2020-10-01 13:29] VITALS: BP 122/76
[2020-10-01] MEDS ORDERED: LORazepam 1MG TABLET PO PRN ×3 (13:30)
[2020-10-01] MEDS ORDERED: ONDANSETRON 4 MG TABLET PO PRN (13:30)
[2020-10-01] MEDS ORDERED: ACETAMINOPHEN 325 MG TABLET PO PRN ×2 (13:30→15:00)
[2020-10-01] MEDS ORDERED: ONDANSETRON 2MG/ML, 2ML IVPush PRN ×2 (13:30→15:00)
[2020-10-01] MEDS ORDERED: LORazepam 2 MG/ML, 1ML IV PRN ×5 (13:30)
[2020-10-01] MEDS ORDERED: LORazepam 0.5MG TABLET PO PRN (13:30)
[2020-10-01] MEDS ORDERED: BACLOFEN 10 MG TABLET PO PRN (15:00)
[2020-10-01] MEDS ORDERED: morphine SULFATE 10 MG/ML, 1ML IVPush PRN (15:00)
[2020-10-01] MEDS ORDERED: MAGNESIUM SULFATE PMX 4GM/100M 100 ML IVPB ONE (15:00)
[2020-10-01] MEDS ORDERED: ONDANSETRON ODT 4 MG PO PRN (15:00)
[2020-10-01] MEDS ORDERED: METOCLOPRAMIDE 5 MG/ML, 2ML IVPush PRN (15:00)
[2020-10-01] MEDS ORDERED: ENALAPRILAT 1.25 MG/ML, 2ML IVPush PRN (15:00)
[2020-10-01] MEDS: LORazepam 1MG TABLET PO PRN ×2 (16:06→18:39)
[2020-10-01] MEDS ORDERED: ALBUTEROL HFA 90 MCG/SPRAY INH PRN (16:30)
[2020-10-01 19:14] VITALS: BP 158/81
[2020-10-01] MEDS: LACTULOSE 10 GM/15 ML UDC PO SCH (20:20)
[2020-10-02 00:22] VITALS: BP 145/85
[2020-10-02 05:35] LABS: BASOPHILS % (AUTO) 1 % (0-1); EOSINOPHILS % (AUTO) 1 % (1-7); LYMPHOCYTES % (AUTO) 24 % (22-44); MEAN CORPUSCULAR HEMOGLOBIN 26.1 pg (27.5-34.5); MEAN PLATELET VOLUME 7.6 fL (7.4-10.4); MONOCYTES % (AUTO) 10 % (2-9); NEUTROPHILS % (AUTO) 64 % (42-75); PLATELET COUNT 122 x10^3/uL (130-400); RED BLOOD COUNT 3.77 x10^6/uL (4.38-5.82)
[2020-10-02 05:47] LABS: ALANINE AMINOTRANSFERASE 33 U/L (12-78); ALBUMIN 2.9 g/dL (3.4-5.0); ANION GAP 8 mmol/L (5-15); CALCIUM 7.8 mg/dL (8.5-10.1); CHLORIDE 102 mmol/L (98-107)
[2020-10-02 06:13] LABS: % IRON SATURATION 90 % (20-55); ALKALINE PHOSPHATASE 98 U/L (45-117); BILIRUBIN,TOTAL 1.4 mg/dL (0.2-1.0); CREATININE 0.67 mg/dL (0.7-1.3); IRON LEVEL 336 mcg/dL (65-175); TOTAL IRON BINDING CAPACITY 372 mcg/dL (250-450); TOTAL PROTEIN 6.8 g/dL (6.4-8.2)
[2020-10-02 06:33] LABS: MD SCAN
[2020-10-02] MEDS ORDERED: ACETAMINOPHEN 500 MG TABLET PO PRN (07:30)
[2020-10-02] MEDS: MULTIVITAMINS/MINERALS TABLET PO SCH (07:56)
[2020-10-02] MEDS: POTASSIUM CHLORIDE 20 MEQ TAB.ER.PRT PO SCH (07:56)
[2020-10-02] MEDS: FOLIC ACID 1 MG TABLET PO SCH (07:57)
[2020-10-02] MEDS: LACTULOSE 10 GM/15 ML UDC PO SCH ×2 (07:57→20:22)
[2020-10-02] MEDS: THIAMINE 100MG TABLET PO SCH (07:57)
[2020-10-02] MEDS: PANTOPRAZOLE 40MG TABLET PO SCH (07:57)
[2020-10-02] MEDS: GABAPENTIN 300 MG CAPSULE PO PRN ×2 (08:08→20:22)
[2020-10-02 12:31] VITALS: BP 142/72
[2020-10-02 19:16] VITALS: BP 136/88
[2020-10-02] MEDS: LORazepam 1MG TABLET PO PRN (20:30)
[2020-10-03 01:13] VITALS: BP 124/82
[2020-10-03 05:23] LABS: ALANINE AMINOTRANSFERASE 35 U/L (12-78); ALBUMIN 3.1 g/dL (3.4-5.0); ANION GAP 6 mmol/L (5-15); CALCIUM 8.5 mg/dL (8.5-10.1); CHLORIDE 103 mmol/L (98-107)
[2020-10-03 05:26] LABS: BASOPHILS % (AUTO) 1 % (0-1); EOSINOPHILS % (AUTO) 1 % (1-7); LYMPHOCYTES % (AUTO) 24 % (22-44); MEAN CORPUSCULAR HGB CONC 31.1 g/dL (33.2-36.2); MEAN PLATELET VOLUME 8.3 fL (7.4-10.4); MONOCYTES % (AUTO) 11 % (2-9); NEUTROPHILS % (AUTO) 64 % (42-75); PLATELET COUNT 129 x10^3/uL (130-400); RED BLOOD COUNT 3.97 x10^6/uL (4.38-5.82); RED CELL DISTRIBUTION WIDTH 25.2 % (9.4-14.8)
[2020-10-03 05:50] LABS: ALKALINE PHOSPHATASE 106 U/L (45-117); CREATININE 0.79 mg/dL (0.7-1.3); TOTAL PROTEIN 7.5 g/dL (6.4-8.2)
[2020-10-03 06:17] LABS: MD SCAN
[2020-10-03] MEDS: POTASSIUM CHLORIDE 20 MEQ TAB.ER.PRT PO SCH (08:10)
[2020-10-03] MEDS: PANTOPRAZOLE 40MG TABLET PO SCH (08:11)
[2020-10-03] MEDS: MULTIVITAMINS/MINERALS TABLET PO SCH (08:11)
[2020-10-03] MEDS: THIAMINE 100MG TABLET PO SCH (08:11)
[2020-10-03] MEDS: FOLIC ACID 1 MG TABLET PO SCH (08:11)
[2020-10-03] MEDS: LACTULOSE 10 GM/15 ML UDC PO SCH (08:12)
== END 2020-10-03 12:49 | disposition home or self-care (01) | DRG 91 ==
LOC: ED 10:27 → EDIP 12:06 → SUATTDRO 12:22 → 4WST 13:04 → DCLOUNGE 10-03 12:41
PROVIDERS: ADMIT Hospitalist; ATTEND Family Medicine
DX: G25.2 Other specified forms of tremor (principal); J96.01 Acute respiratory failure with hypoxia; F10.239 Alcohol dependence with withdrawal, unspecified; G40.89 Other seizures; E66.9 Obesity, unspecified; E83.42 Hypomagnesemia; E87.6 Hypokalemia; F12.90 Cannabis use, unspecified, uncomplicated; D69.6 Thrombocytopenia, unspecified; D64.9 Anemia, unspecified; G62.9 Polyneuropathy, unspecified; J45.909 Unspecified asthma, uncomplicated; K21.9 Gastro-esophageal reflux disease without esophagitis; M1A.9XX0 Chronic gout, unspecified, without tophus (tophi); R29.6 Repeated falls; Z88.8 Allergy status to other drugs, medicaments and biological substances; Z79.899 Other long term (current) drug therapy; Z68.33 Body mass index [BMI] 33.0-33.9, adult
CPT/HCPCS: 36415; 70450; 71045; 80053; 80320; 82010; 82607; 83540; 83550; 83690; 83735; 84100; 85025; 93005; 96361; 96374; 96375; 96376; G0378; J2405; J3411; J3475; G0480; J2060; J7030

== ENCOUNTER 2020-11-16 12:54 | Emergency (ER) | payer MEDICAID ==
[~2020-11-16] VITALS: Ht 188 cm; Wt 112.0 kg
--- NOTE | 2020-11-16 13:25 | NUR ---
assumed care of pt, bib as pt has been drinking heavily, falling down, seizures (unwittnessed by ), confusion. Currently denies SI, but has had some in past will need to reevaluate
[2020-11-16] MEDS ORDERED: SODIUM CHLORIDE FLUSH 10ML SYR IVF ONE (13:30)
[2020-11-16] MEDS ORDERED: THIAMINE 100MG TABLET PO ONE (13:30)
[2020-11-16] MEDS ORDERED: SODIUM CHLORIDE 0.9% 1,000ML IVBOLUS ONE ×2 (13:30→16:00)
[2020-11-16] MEDS ORDERED: THIAMINE 100MG TABLET ONE (13:38)
[2020-11-16 13:52] LABS: MEAN CORPUSCULAR HEMOGLOBIN 25.8 pg (27.5-34.5); MEAN CORPUSCULAR HGB CONC 31.5 g/dL (33.2-36.2); MEAN PLATELET VOLUME 7.6 fL (7.4-10.4); PLATELET COUNT 198 x10^3/uL (130-400); RED BLOOD COUNT 4.84 x10^6/uL (4.38-5.82); RED CELL DISTRIBUTION WIDTH 22.3 % (9.4-14.8)
[2020-11-16 13:58] LABS: ALANINE AMINOTRANSFERASE 25 U/L (12-78); ALBUMIN 3.8 g/dL (3.4-5.0); ANION GAP 12 mmol/L (5-15); CALCIUM 8.6 mg/dL (8.5-10.1); CHLORIDE 104 mmol/L (98-107); CREATININE 0.95 mg/dL (0.7-1.3)
[2020-11-16 14:01] LABS: ALKALINE PHOSPHATASE 103 U/L (45-117); BILIRUBIN,TOTAL 0.6 mg/dL (0.2-1.0); TOTAL PROTEIN 8.5 g/dL (6.4-8.2)
--- NOTE | 2020-11-16 14:10 | NUR ---
PT GIVEN THIAMINE ORDERED. PT WAS SLEEPING, WAS DESATING INTO THE 88 PLACED PT ON 2L NC. WHILE IN THERE PT REPORTS HALLUCINATIONS BOTH AUDITORY AND VISUAL WELL HEADACHE. SAYS, "IT IS HARD TO DESCRIBE, BUT IM SEEING GHOST"
--- NOTE | 2020-11-16 14:33 | NUR ---
RECEIVED CRITICAL BLOOD ETOH OF 0.445, MADE AWARE AT 1428. NO NEW ORDERS.
[2020-11-16 14:37] LABS: MD YES
[2020-11-16 14:41] LABS: BAND#(MANUAL) 0.21 x10^3/uL; BANDS%(MANUAL) 3 % (0-7); BASOS#(MANUAL) 0.07 x10^3/uL (0-0.1); BASOS% (MANUAL) 1 % (0-1); LYMPH#(MANUAL) 1.33 x10^3/uL (1-3.4); LYMPHS% (MANUAL) 19 % (22-44); MONOS#(MANUAL) 0.21 x10^3/uL (0.3-2.7); MONOS% (MANUAL) 3 % (2-9); SEG#(MANUAL) 5.18 x10^3/uL (1.8-6.8); SEGS% (MANUAL) 74 % (42-75)
[2020-11-16 14:43] LABS: ANISOCYTOSIS 1+
[2020-11-16 14:44] LABS: <PLATELET ESTIMATE> ADEQUATE; <PLT MORPHOLOGY> NORMAL PLT MORPH; HYPOCHROMIA 1+
--- NOTE | 2020-11-16 15:38 | NUR ---
PT CALLED AND UPDATED ON PLAN TO DC PT. SHE IS CONCERNED REGARDING FALLING, WILL SHARE THIS WITH MD.
[2020-11-16 15:52] LABS: MICROSCOPIC INDICATED
--- NOTE | 2020-11-16 16:47 | NUR ---
PT ATE SOME FOOD, SLEEPING CURRENTLY.
--- NOTE | 2020-11-16 17:50 | NUR ---
PT SECOND BOLUS COMPLETE, WATER PROVIDED. PT MORE AWAKE NOW, STATES, "IM FEELING SHAKEY, CAN I GET ZOFRAN?" EXPLAINED TO PATIENT THAT MEDICATION IS FOR NAUSEA. PT REPLIES, "CAN I GET ATIVAN THEN?" Addendum: 11/16/20 at 1757 by STEVEN MD NOTIFIED OF PT REQUEST, NO ORDER
[2020-11-16 18:36] VITALS: BP 109/65
--- NOTE | 2020-11-16 18:37 | NUR ---
Patient given discharge instructions and they have confirmed that they understand the instructions. Patient ambulatory with steady gait.
== END 2020-11-16 18:38 | disposition home or self-care (01) ==
LOC: ED 18:04
DX: F10.129 Alcohol abuse with intoxication, unspecified (principal); E87.2 Acidosis; R00.0 Tachycardia, unspecified; Y90.0 Blood alcohol level of less than 20 mg/100 ml
CPT/HCPCS: 36415; 80053; 80320; 81001; 83605; 83690; 83735; 85025; 93005; 96360; 96361; 99284; J7030; G0480

== ENCOUNTER 2021-01-30 20:29 | Inpatient (IN) | payer MEDICAID ==
[~2021-01-30] VITALS: Ht 188 cm; Wt 116.5 kg
--- NOTE | 2021-01-30 20:38 | NUR ---
Patient BIBA c/o ETOH withdrawal. Patient states his last drink was this morning and had 1 shot. Prior to that, patient was drinking all day every day. Patient has a hx of same. C/o bilat foot pain and low back pain. Slightly nauseous. Patient is tremulous and appears anxious. Respirations even and unlabored.
[2021-01-30] MEDS ORDERED: LORazepam 2 MG/ML, 1ML ONE ×2 (20:46→21:33)
[2021-01-30] MEDS ORDERED: ONDANSETRON 2MG/ML, 2ML ONE (20:54)
[2021-01-30] MEDS: LORazepam 2 MG/ML, 1ML IVPush PRN ×4 (20:58→22:05)
[2021-01-30] MEDS ORDERED: SODIUM CHLORIDE 0.9% 1,000ML IVBOLUS ONE (21:00)
[2021-01-30] MEDS ORDERED: SODIUM CHLORIDE FLUSH 10ML SYR IVF ONE (21:00)
[2021-01-30] MEDS ORDERED: ONDANSETRON 2MG/ML, 2ML IVPush ONE (21:00)
[2021-01-30] MEDS ORDERED: THIAMINE 100 MG in SODIUM CHLORIDE 0.9% 50 ML IVPB ONE (21:00)
[2021-01-30 21:09] LABS: PH, VENOUS 7.411 pH (7.320-7.420)
[2021-01-30 21:17] LABS: MEAN CORPUSCULAR HEMOGLOBIN 28.1 pg (27.5-34.5); MEAN CORPUSCULAR HGB CONC 31.5 g/dL (33.2-36.2); MEAN PLATELET VOLUME 8.2 fL (7.4-10.4); PLATELET COUNT 108 x10^3/uL (130-400); RED BLOOD COUNT 4.87 x10^6/uL (4.38-5.82)
[2021-01-30 21:21] LABS: ALANINE AMINOTRANSFERASE 68 U/L (12-78); ALBUMIN 3.5 g/dL (3.4-5.0); ANION GAP 23 mmol/L (5-15); CALCIUM 9.6 mg/dL (8.5-10.1); CHLORIDE 98 mmol/L (98-107); CREATININE 1.14 mg/dL (0.7-1.3)
[2021-01-30 21:23] LABS: ALKALINE PHOSPHATASE 191 U/L (45-117); BILIRUBIN,TOTAL 1.6 mg/dL (0.2-1.0); TOTAL PROTEIN 9.2 g/dL (6.4-8.2)
[2021-01-30 22:09] LABS: ANISOCYTOSIS 1+; BAND#(MANUAL) 0.86 x10^3/uL; BANDS%(MANUAL) 7 % (0-7); BASOS#(MANUAL) 0.12 x10^3/uL (0-0.1); BASOS% (MANUAL) 1 % (0-1); EOS#(MANUAL) 0.12 x10^3/uL (0.0-0.4); EOS% (MANUAL) 1 % (1-7); LYMPH#(MANUAL) 0.74 x10^3/uL (1-3.4); LYMPHS% (MANUAL) 6 % (22-44); MONOS#(MANUAL) 0.25 x10^3/uL (0.3-2.7); MONOS% (MANUAL) 2 % (2-9); SEG#(MANUAL) 10.21 x10^3/uL (1.8-6.8); SEGS% (MANUAL) 83 % (42-75)
[2021-01-30 22:10] LABS: <PLATELET ESTIMATE> DECREASED; <PLT MORPHOLOGY> NORMAL PLT MORPH
--- NOTE | 2021-01-30 22:13 | NUR ---
Report given to WILLARD Sanchez. Patient to be transferred to room 486-2.
[2021-01-30] MEDS ORDERED: POLYETHYLENE GLYCOL 17 GM PACKET PO PRN (22:30)
[2021-01-30] MEDS ORDERED: ONDANSETRON 2MG/ML, 2ML IVPush PRN (22:30)
[2021-01-30] MEDS ORDERED: BISACODYL 10 MG SUPP PR PRN (22:30)
[2021-01-30] MEDS ORDERED: CHLORDIAZEPOXIDE 25 MG CAPSULE PO PRN (22:30)
[2021-01-30 23:07] VITALS: BP 157/90
[2021-01-30] MEDS: SUCRALFATE 1 GM/10 ML UDC PO SCH (23:10)
[2021-01-30] MEDS: NS + 20MEQ KCL 1,000 ML IV SCH (23:18)
[2021-01-30 23:24] VITALS: BP 134/74
[2021-01-31] MEDS: LORazepam 2 MG/ML, 1ML IVPush PRN ×4 (01:17→10:51)
[2021-01-31 01:24] VITALS: BP 143/86
[2021-01-31 02:25] LABS: BASOPHILS % (AUTO) 1 % (0-1); EOSINOPHILS % (AUTO) 0 % (1-7); LYMPHOCYTES % (AUTO) 7 % (22-44); MEAN CORPUSCULAR HEMOGLOBIN 28.2 pg (27.5-34.5); MEAN CORPUSCULAR HGB CONC 32.1 g/dL (33.2-36.2); MEAN PLATELET VOLUME 8.5 fL (7.4-10.4); MONOCYTES % (AUTO) 9 % (2-9); NEUTROPHILS % (AUTO) 83 % (42-75); PLATELET COUNT 107 x10^3/uL (130-400); RED BLOOD COUNT 4.72 x10^6/uL (4.38-5.82); RED CELL DISTRIBUTION WIDTH 19.8 % (9.4-14.8)
[2021-01-31 02:33] LABS: ANION GAP 13 mmol/L (5-15); CALCIUM 9.4 mg/dL (8.5-10.1); CHLORIDE 99 mmol/L (98-107); CREATININE 1.08 mg/dL (0.7-1.3)
[2021-01-31] MEDS: SUCRALFATE 1 GM/10 ML UDC PO SCH ×4 (06:22→20:27)
[2021-01-31 06:33] VITALS: BP 136/96
[2021-01-31] MEDS ORDERED: PANTOPRAZOLE 40 MG IV IVPush SCH (07:30)
[2021-01-31] MEDS: THIAMINE 100MG TABLET PO SCH ×2 (07:47→20:27)
[2021-01-31] MEDS: SENNA/DOCUSATE TABLET PO SCH (07:47)
[2021-01-31] MEDS: MULTIVITAMINS/MINERALS TABLET PO SCH (07:47)
[2021-01-31] MEDS: NS + 20MEQ KCL 1,000 ML IV SCH ×2 (07:47→17:06)
[2021-01-31] MEDS ORDERED: FOLIC ACID 1 MG TABLET PO SCH (09:00)
[2021-01-31] MEDS: CHLORDIAZEPOXIDE 5 MG CAPSULE PO PRN ×2 (11:39→23:53)
[2021-01-31] MEDS ORDERED: SODIUM CHLORIDE 0.9%, 500ML IVBOLUS ONE (14:00)
[2021-01-31] MEDS ORDERED: LORazepam 2 MG/ML, 1ML IV PRN ×3 (14:00)
[2021-01-31] MEDS: LORazepam 1MG TABLET PO SCH ×3 (14:02→20:27)
[2021-01-31] MEDS: LORazepam 2 MG/ML, 1ML IV PRN ×3 (14:15→22:24)
[2021-01-31 15:52] LABS: SALICYLATE LEVEL < 1.7 mg/dL (2.8-20.0)
[2021-01-31 18:40] VITALS: BP 155/89
[2021-02-01] MEDS: LORazepam 2 MG/ML, 1ML IV PRN ×12 (01:31→06:48)
[2021-02-01 02:23] VITALS: BP 136/84
[2021-02-01] MEDS ORDERED: DIAZEPAM 10 MG TABLET PO SCH (04:00)
[2021-02-01 04:30] LABS: BASOPHILS % (AUTO) 0 % (0-1); EOSINOPHILS % (AUTO) 0 % (1-7); LYMPHOCYTES % (AUTO) 17 % (22-44); MEAN CORPUSCULAR HEMOGLOBIN 28.5 pg (27.5-34.5); MEAN CORPUSCULAR HGB CONC 32.2 g/dL (33.2-36.2); MEAN PLATELET VOLUME 8.7 fL (7.4-10.4); MONOCYTES % (AUTO) 10 % (2-9); NEUTROPHILS % (AUTO) 73 % (42-75); PLATELET COUNT 99 x10^3/uL (130-400); RED BLOOD COUNT 4.09 x10^6/uL (4.38-5.82); RED CELL DISTRIBUTION WIDTH 19.2 % (9.4-14.8)
[2021-02-01 04:34] LABS: ALANINE AMINOTRANSFERASE 49 U/L (12-78); ALBUMIN 2.8 g/dL (3.4-5.0); ANION GAP 8 mmol/L (5-15); CALCIUM 8.8 mg/dL (8.5-10.1); CHLORIDE 103 mmol/L (98-107); CREATININE 0.83 mg/dL (0.7-1.3)
[2021-02-01 04:36] LABS: ALKALINE PHOSPHATASE 138 U/L (45-117); BILIRUBIN,TOTAL 1.6 mg/dL (0.2-1.0); TOTAL PROTEIN 7.3 g/dL (6.4-8.2)
[2021-02-01] MEDS: NS + 20MEQ KCL 1,000 ML IV SCH (04:41)
[2021-02-01] MEDS: PANTOPRAZOLE 40MG TABLET PO SCH (05:17)
[2021-02-01] MEDS ORDERED: PHENOBARBITAL SODIUM 820 MG in SODIUM CHLORIDE 0.9% 50 ML IVPB ONE (07:30)
[2021-02-01] MEDS ORDERED: PHARMACY INSTRUCTION MC PRN ×4 (07:30)
[2021-02-01] MEDS ORDERED: SODIUM CHLORIDE 0.9% IVPB ONE (07:36)
[2021-02-01] MEDS ORDERED: PHENOBARBITAL SODIUM IVPB ONE (07:36)
[2021-02-01] MEDS ORDERED: MAGNESIUM SULFATE PMX 2GM/50ML 50 ML IV ONE (08:00)
[2021-02-01] MEDS ORDERED: THIAMINE 200 MG in SODIUM CHLORIDE 0.9% 50 ML IV SCH (09:00)
[2021-02-01] MEDS: POTASSIUM CHLORIDE 40 MEQ in SODIUM CHLORIDE 0.9% 1,000 ML IV SCH ×2 (09:36→21:26)
[2021-02-01] MEDS: MULTIVITAMINS/MINERALS TABLET PO SCH (09:36)
[2021-02-01] MEDS: SENNA/DOCUSATE TABLET PO SCH (09:36)
[2021-02-01] MEDS ORDERED: SODIUM PHOSPHATE 40 MMOL in SODIUM CHLORIDE 0.9% 500 ML IV ONE (10:30)
[2021-02-01] MEDS ORDERED: SODIUM CHLORIDE 0.9% IV ONE (13:30)
[2021-02-01] MEDS ORDERED: PHENOBARBITAL SODIUM IV ONE (13:30)
[2021-02-01] MEDS: PHENOBARBITAL SODIUM 65 MG/ML, 1ML IM SCH (18:07)
[2021-02-02] MEDS ORDERED: DIAZEPAM 10 MG TABLET PO SCH (04:00)
[2021-02-02] MEDS: PHENOBARBITAL SODIUM 65 MG/ML, 1ML IM SCH ×2 (04:27→18:05)
[2021-02-02 04:54] LABS: BASOPHILS % (AUTO) 1 % (0-1); EOSINOPHILS % (AUTO) 1 % (1-7); LYMPHOCYTES % (AUTO) 16 % (22-44); MEAN CORPUSCULAR HEMOGLOBIN 28.7 pg (27.5-34.5); MEAN CORPUSCULAR HGB CONC 31.5 g/dL (33.2-36.2); MEAN PLATELET VOLUME 8.6 fL (7.4-10.4); MONOCYTES % (AUTO) 12 % (2-9); NEUTROPHILS % (AUTO) 72 % (42-75); PLATELET COUNT 118 x10^3/uL (130-400); RED BLOOD COUNT 4.11 x10^6/uL (4.38-5.82); RED CELL DISTRIBUTION WIDTH 19.4 % (9.4-14.8)
[2021-02-02 05:05] LABS: ANION GAP 13 mmol/L (5-15); CALCIUM 8.5 mg/dL (8.5-10.1); CHLORIDE 103 mmol/L (98-107)
[2021-02-02 05:08] LABS: CREATININE 0.63 mg/dL (0.7-1.3)
[2021-02-02] MEDS: POTASSIUM CHLORIDE 40 MEQ in SODIUM CHLORIDE 0.9% 1,000 ML IV SCH (05:17)
[2021-02-02] MEDS: PANTOPRAZOLE 40MG TABLET PO SCH (05:49)
[2021-02-02] MEDS ORDERED: ZIPRASIDONE 20 MG INJ IM PRN (07:30)
[2021-02-02] MEDS ORDERED: POTASSIUM CHLORIDE 60 MEQ in SODIUM CHLORIDE 0.9% 1,000 ML IV ONE (07:30)
[2021-02-02] MEDS: POTASSIUM CHLORIDE 20 MEQ, MAGNESIUM SULFATE 1 GM, FOLIC ACID 1 MG, THIAMINE 200 MG, MV... IV SCH ×2 (08:00→20:41)
[2021-02-02] MEDS: SENNA/DOCUSATE TABLET PO SCH (09:00)
[2021-02-02] MEDS ORDERED: PHENOBARBITAL SODIUM IV ONE (14:00)
[2021-02-02] MEDS ORDERED: SODIUM CHLORIDE 0.9% IV ONE (14:00)
[2021-02-02] MEDS ORDERED: GABA600T7 PO (18:50)
[2021-02-02] MEDS ORDERED: ALLO300T PO (18:50)
[2021-02-03] MEDS: PHENOBARBITAL SODIUM 65 MG/ML, 1ML IM SCH (04:36)
[2021-02-03 05:33] LABS: CHLORIDE 104 mmol/L (98-107)
[2021-02-03 05:42] LABS: ANION GAP 9 mmol/L (5-15); CALCIUM 8.4 mg/dL (8.5-10.1)
[2021-02-03] MEDS: PANTOPRAZOLE 40MG TABLET PO SCH (05:49)
[2021-02-03] MEDS: SENNA/DOCUSATE TABLET PO SCH (08:51)
[2021-02-03 14:28] VITALS: BP 112/86
[2021-02-03] MEDS: PHENOBARBITAL 20 MG/5 ML ORAL SOL PO SCH (17:36)
[2021-02-03 20:00] VITALS: BP 143/91
[2021-02-03] MEDS: POTASSIUM CHLORIDE 20 MEQ, MAGNESIUM SULFATE 1 GM, FOLIC ACID 1 MG, THIAMINE 200 MG, MV... IV SCH (21:46)
[2021-02-04 01:45] VITALS: BP 145/79
[2021-02-04] MEDS: PHENOBARBITAL 20 MG/5 ML ORAL SOL PO SCH ×2 (05:24→17:16)
[2021-02-04] MEDS: PANTOPRAZOLE 40MG TABLET PO SCH (05:24)
[2021-02-04 06:27] LABS: CHLORIDE 102 mmol/L (98-107)
[2021-02-04 06:43] LABS: ANION GAP 6 mmol/L (5-15); CALCIUM 8.1 mg/dL (8.5-10.1); CREATININE 0.58 mg/dL (0.7-1.3)
[2021-02-04 09:31] VITALS: BP 142/81
[2021-02-04] MEDS: SENNA/DOCUSATE TABLET PO SCH (10:10)
[2021-02-04 13:40] VITALS: BP 151/88
[2021-02-04] MEDS: ENOXAPARIN 40 MG/0.4 ML SQ SCH (15:28)
[2021-02-04 20:10] VITALS: BP 147/74
[2021-02-04] MEDS: THIAMINE 100MG TABLET PO SCH (20:56)
[2021-02-05 00:34] VITALS: BP 122/87
[2021-02-05] MEDS: PHENOBARBITAL 20 MG/5 ML ORAL SOL PO SCH (04:58)
[2021-02-05] MEDS: PANTOPRAZOLE 40MG TABLET PO SCH (04:58)
[2021-02-05 05:16] LABS: MEAN CORPUSCULAR HEMOGLOBIN 29.8 pg (27.5-34.5); MEAN CORPUSCULAR HGB CONC 32.5 g/dL (33.2-36.2); MEAN PLATELET VOLUME 8.5 fL (7.4-10.4); PLATELET COUNT 209 x10^3/uL (130-400); RED BLOOD COUNT 3.98 x10^6/uL (4.38-5.82); RED CELL DISTRIBUTION WIDTH 19.8 % (9.4-14.8)
[2021-02-05 05:22] LABS: ALBUMIN 2.6 g/dL (3.4-5.0); ANION GAP 6 mmol/L (5-15); CALCIUM 8.3 mg/dL (8.5-10.1); CHLORIDE 101 mmol/L (98-107)
[2021-02-05 05:26] LABS: ALANINE AMINOTRANSFERASE 51 U/L (12-78); ALKALINE PHOSPHATASE 122 U/L (45-117); BILIRUBIN,TOTAL 0.7 mg/dL (0.2-1.0); CREATININE 0.59 mg/dL (0.7-1.3); TOTAL PROTEIN 7.3 g/dL (6.4-8.2)
[2021-02-05 05:46] LABS: BAND#(MANUAL) 0.23 x10^3/uL; BANDS%(MANUAL) 3 % (0-7); EOS#(MANUAL) 0.08 x10^3/uL (0.0-0.4); EOS% (MANUAL) 1 % (1-7); LYMPHS% (MANUAL) 12 % (22-44); METAMYELOCYTES# (MANUAL) 0.15 x10^3/uL (0-0); METAMYELOCYTES% (MANUAL) 2 % (0-1); MONOS#(MANUAL) 1.35 x10^3/uL (0.3-2.7); MONOS% (MANUAL) 18 % (2-9); MYELOCYTES# (MANUAL) 0.15 x10^3/uL (0-0); MYELOCYTES% (MANUAL) 2 % (0-0); SEG#(MANUAL) 4.65 x10^3/uL (1.8-6.8); SEGS% (MANUAL) 62 % (42-75)
[2021-02-05 05:48] LABS: <PLATELET ESTIMATE> ADEQUATE; <PLT MORPHOLOGY> NORMAL PLT MORPH; ANISOCYTOSIS 1+
[2021-02-05] MEDS ORDERED: ALLOPURINOL 300 MG TABLET ONE (06:06)
[2021-02-05] MEDS: ALLOPURINOL 300 MG TABLET PO SCH (06:07)
[2021-02-05 08:01] VITALS: BP 134/87
[2021-02-05] MEDS: MAGNESIUM OXIDE 400 MG TABLET PO SCH ×2 (08:32→21:44)
[2021-02-05] MEDS: THIAMINE 100MG TABLET PO SCH ×2 (08:32→21:44)
[2021-02-05] MEDS: POTASSIUM CHLORIDE 20 MEQ TAB.ER.PRT PO SCH ×3 (08:32→17:37)
[2021-02-05] MEDS: GABAPENTIN 300 MG CAPSULE PO SCH (08:32)
[2021-02-05] MEDS: MULTIVITAMIN 1 TABLET PO SCH (08:32)
[2021-02-05] MEDS: SENNA/DOCUSATE TABLET PO SCH (08:33)
[2021-02-05] MEDS: FOLIC ACID 1 MG TABLET PO SCH (08:33)
[2021-02-05 13:02] VITALS: BP 120/72
[2021-02-05] MEDS: ENOXAPARIN 40 MG/0.4 ML SQ SCH (14:51)
[2021-02-05] MEDS ORDERED: FOLI1TAB32 PO (15:44)
[2021-02-05] MEDS ORDERED: MULT-482 PO (15:44)
[2021-02-05] MEDS ORDERED: THIA100T67 PO (15:44)
[2021-02-05] MEDS ORDERED: MAGN400T50 PO (15:44)
[2021-02-05] MEDS ORDERED: PHENOBARBITAL 20 MG/5 ML ORAL SOL PO SCH (17:00)
[2021-02-05 20:26] VITALS: BP 156/97
[2021-02-05] MEDS: IBUPROFEN 200 MG TABLET PO PRN (21:44)
[2021-02-06 02:00] VITALS: BP 156/98
[2021-02-06] MEDS: PANTOPRAZOLE 40MG TABLET PO SCH (05:50)
[2021-02-06 06:57] VITALS: BP 145/90
[2021-02-06] MEDS: MAGNESIUM OXIDE 400 MG TABLET PO SCH (08:29)
[2021-02-06] MEDS: ALLOPURINOL 300 MG TABLET PO SCH (08:29)
[2021-02-06] MEDS: SENNA/DOCUSATE TABLET PO SCH (08:29)
[2021-02-06] MEDS: IBUPROFEN 200 MG TABLET PO PRN (08:29)
[2021-02-06] MEDS: THIAMINE 100MG TABLET PO SCH (08:30)
[2021-02-06] MEDS: MULTIVITAMIN 1 TABLET PO SCH (08:30)
[2021-02-06] MEDS: GABAPENTIN 300 MG CAPSULE PO SCH (08:30)
[2021-02-06] MEDS: FOLIC ACID 1 MG TABLET PO SCH (08:30)
[2021-02-06] MEDS ORDERED: ALLO300T PO (11:15)
[2021-02-06] MEDS ORDERED: PHENOBARBITAL 20 MG/5 ML ORAL SOL PO SCH (17:00)
== END 2021-02-06 12:33 | disposition home or self-care (01) | DRG 92 ==
LOC: ED 20:40 → 4EST 21:35 → CCU 02-01 03:45 → 5SO 02-03 14:19 → DCLOUNGE 02-06 12:22
PROVIDERS: ADMIT Emergency Medicine; ATTEND Hospitalist
DX: R25.1 Tremor, unspecified (principal); F10.231 Alcohol dependence with withdrawal delirium; E87.1 Hypo-osmolality and hyponatremia; E87.2 Acidosis; G93.40 Encephalopathy, unspecified; R65.10 Systemic inflammatory response syndrome (SIRS) of non-infectious origin without acute organ dysfunction; R41.0 Disorientation, unspecified; F12.90 Cannabis use, unspecified, uncomplicated; D64.9 Anemia, unspecified; D69.6 Thrombocytopenia, unspecified; E83.39 Other disorders of phosphorus metabolism; E83.42 Hypomagnesemia; E87.6 Hypokalemia; F41.9 Anxiety disorder, unspecified; G40.909 Epilepsy, unspecified, not intractable, without status epilepticus; G62.9 Polyneuropathy, unspecified; G89.29 Other chronic pain; J45.909 Unspecified asthma, uncomplicated; K70.10 Alcoholic hepatitis without ascites; F29 Unspecified psychosis not due to a substance or known physiological condition; M10.9 Gout, unspecified; M19.90 Unspecified osteoarthritis, unspecified site; Z56.0 Unemployment, unspecified; Z81.1 Family history of alcohol abuse and dependence; Z81.8 Family history of other mental and behavioral disorders; Z83.49 Family history of other endocrine, nutritional and metabolic diseases; Z82.49 Family history of ischemic heart disease and other diseases of the circulatory system; Z84.89 Family history of other specified conditions; Z83.3 Family history of diabetes mellitus; Z87.891 Personal history of nicotine dependence; Z88.8 Allergy status to other drugs, medicaments and biological substances
CPT/HCPCS: 36415; 96374; 99291; J7042; 80048; 80053; 80299; 80320; 80329; 82693; 82803; 83605; 83735; 84100; 85014; 85018; 85025; 87081; G0378; J1650; J2405; J2560; J3411; J3475; J3480; C9113; G0480; J2060; J7030; J7040